=== PATIENT | male | born 1980 | race Hispanic/Latino ===

== ENCOUNTER 2023-12-30 09:05 | Inpatient (IN) | payer SELFPAY ==
[2023-12-30 10:04] LABS: #Basophils 0.03 10x3/uL (0.0-0.2); #Eosinphils Less than 0.03 10x3/uL (0.0-0.7); %Basophils 0.1 % (0.0-1.0); %Eosinophils 0.1 % (0.0-10.0); %Lymphocytes 2.4 % (21.0-51.0); %Monocytes 7.3 % (0.0-10.0); %Neutrophils 87.7 % (42.0-75.0); Hematocrit 24.2 % (42.0-52.0); Hemoglobin 7.5 g/dL (14.0-18.0); Mean Corpuscular Volume 96.8 fL (78.0-98.0); Platelet Count 199 10x3/uL (130-400); RBC Distribution Width 16.7 % (11.5-14.5)
[2023-12-30 10:18] LABS: INR-International Normal Ratio 1.5; Prothrombin Time 17.8 sec (12.0-14.7)
[2023-12-30 10:19] LABS: PTT 37.9 sec (22.9-36.1)
[2023-12-30] MEDS ORDERED: cefTRIAXone (ROCEPHIN) 1 GM VIAL ONE (10:23)
[2023-12-30 10:24] LABS: ALT (SGPT) 19 U/L (8-55); AST (SGOT) 19 U/L (5-34); Albumin 3.5 g/dL (3.5-5.0); Alkaline Phosphatase 82 U/L (40-110); Anion Gap 13 mmol/L (10-20); BUN (Urea Nitrogen) 34 mg/dL (8.9-20.6); Bilirubin, Total 1.5 mg/dL (0.2-1.2); Calc. Creatinine Clearance 0 mL/min (70-130); Calcium 8.9 mg/dL (7.8-10.44); Carbon Dioxide 25 mmol/L (22-29); Chloride 101 mmol/L (98-107); Estimated GFR 40; Glucose 239 mg/dL (70-105); Potassium 4.4 mmol/L (3.5-5.1); Protein, Total 7.5 g/dL (6.0-8.3); Sodium 135 mmol/L (136-145)
[2023-12-30] MEDS ORDERED: Sodium Chloride 0.9% 100 ML ONE (10:24)
[2023-12-30] MEDS ORDERED: Pantoprazole 40 MG VIAL ONE (12:09)
[2023-12-30 12:13] LABS: Bacteria/HPF 4+ HPF (None Seen); Bilirubin Negative (Negative); Blood, Urine 3+ (Negative); CAUTI Indications for Culture Dysuria,urgency,freq; Clarity Turbid (Clear); Glucose, Urine (Dipstick) Normal (Negative); Ketone, Urine Negative (Negative); Leukocyte 500 Leu/uL (Negative); Nitrite Negative (Negative); Protein, Urine (Dipstick) 30 mg/dL (Neg-Trace); Squamous Epithelial 0-3 HPF (0-3); Urobilinogen Normal mg/dL (Less than 2); WBC/HPF Greater than 50 HPF (0-3); pH, Urine 5.5 (5.0-9.0)
[2023-12-30 12:14] LABS: RBC/HPF 21-50 HPF (0-3)
[2023-12-30 12:16] LABS: Urine Culture Reflex Yes Yes
[2023-12-30 12:56] LABS: Hematocrit 28.2 % (42.0-52.0); Hemoglobin 8.5 g/dL (14.0-18.0); Mean Corpuscular HGB CONC 30.1 g/dL (32.0-36.0); Mean Corpuscular Hemoglobin 28.9 pg (27.0-31.0); Mean Corpuscular Volume 95.9 fL (78.0-98.0); Mean Platelet Volume 9.8 fL (7.4-10.4); Platelet Count 258 10x3/uL (130-400); Red Blood Cell (RBC) Count 2.94 mill/uL (4.70-6.10)
[2023-12-30 15:03] LABS: Hemoglobin A1c 3.2 % (4.0-6.0)
[2023-12-30] MEDS: Lactated Ringer's 1,000 ML IV SCH ×2 (15:54)
[2023-12-30] MEDS: FLU VACC QS2023-24(6MOS UP)/PF 60 MCG/0.5 ML SYRINGE IM ONE (15:54)
[2023-12-30] MEDS: cefTRIAXone\\ROCEPHIN 1 GM in Sodium Chloride 0.9% 100 ML IVPB SCH (15:55)
[2023-12-30] MEDS: Acetaminophen 325 MG TAB PO PRN (16:27)
[2023-12-30 17:00] LABS: #Basophils 0.03 10x3/uL (0.0-0.2); #Eosinphils Less than 0.03 10x3/uL (0.0-0.7); %Basophils 0.1 % (0.0-1.0); %Lymphocytes 2.8 % (21.0-51.0); %Monocytes 10.5 % (0.0-10.0); %Neutrophils 84.8 % (42.0-75.0); Hematocrit 19.6 % (42.0-52.0); Mean Corpuscular HGB CONC 30.6 g/dL (32.0-36.0); Mean Corpuscular Hemoglobin 29.3 pg (27.0-31.0); Mean Corpuscular Volume 95.6 fL (78.0-98.0); Mean Platelet Volume 9.7 fL (7.4-10.4); Platelet Count 177 10x3/uL (130-400); RBC Distribution Width 16.7 % (11.5-14.5); Red Blood Cell (RBC) Count 2.05 mill/uL (4.70-6.10)
[2023-12-30 17:09] LABS: Influenza A by NAA Not Detected (NotDetected); Influenza B by NAA Not Detected (NotDetected); SARS-CoV-2 NAA Rapid Test Not Detected (NotDetected)
[2023-12-30 17:23] LABS: Iron Less than 8 ug/dL (65-175); Iron Binding Capacity, Total 145 mcg/dL (261-462)
[2023-12-30 17:26] LABS: Chloride 108 mmol/L (98-107)
[2023-12-30 17:27] LABS: Calcium 7.9 mg/dL (7.8-10.44); Potassium 4.2 mmol/L (3.5-5.1); Sodium 135 mmol/L (136-145)
[2023-12-30 17:28] LABS: Globulin 3.1 g/dL (2.4-3.5); Glucose 122 mg/dL (70-105); Protein, Total 6.1 g/dL (6.0-8.3)
[2023-12-30 17:29] LABS: Anion Gap 13 mmol/L (10-20); Carbon Dioxide 18 mmol/L (22-29)
[2023-12-30 17:30] LABS: Bilirubin, Total 1.2 mg/dL (0.2-1.2)
[2023-12-30 17:31] LABS: Alkaline Phosphatase 70 U/L (40-110); Calc. Creatinine Clearance 61 mL/min (70-130); Estimated GFR 47
[2023-12-30 17:32] LABS: BUN (Urea Nitrogen) 35 mg/dL (8.9-20.6)
[2023-12-30 17:33] LABS: AST (SGOT) 22 U/L (5-34)
[2023-12-30 17:34] LABS: ALT (SGPT) 17 U/L (8-55)
[2023-12-30 18:35] LABS: #Basophils Less than 0.03 10x3/uL (0.0-0.2); #Eosinphils Less than 0.03 10x3/uL (0.0-0.7); %Basophils 0.1 % (0.0-1.0); %Lymphocytes 2.9 % (21.0-51.0); %Monocytes 7.7 % (0.0-10.0); %Neutrophils 87.7 % (42.0-75.0); Hemoglobin 6.3 g/dL (14.0-18.0); Mean Corpuscular Volume 96.8 fL (78.0-98.0); Mean Platelet Volume 10.2 fL (7.4-10.4); Platelet Count 176 10x3/uL (130-400); RBC Distribution Width 17.2 % (11.5-14.5); Red Blood Cell (RBC) Count 2.17 mill/uL (4.70-6.10)
[2023-12-30] MEDS: Pantoprazole 40 MG VIAL IVP SCH (19:45)
[2023-12-31 06:04] LABS: #Basophils 0.03 10x3/uL (0.0-0.2); #Eosinphils Less than 0.03 10x3/uL (0.0-0.7); %Basophils 0.1 % (0.0-1.0); %Monocytes 7.2 % (0.0-10.0); %Neutrophils 88.6 % (42.0-75.0); Hematocrit 29.3 % (42.0-52.0); Hemoglobin 8.8 g/dL (14.0-18.0); Mean Corpuscular Hemoglobin 29.4 pg (27.0-31.0); Mean Platelet Volume 10.3 fL (7.4-10.4); Platelet Count 200 10x3/uL (130-400); RBC Distribution Width 17.5 % (11.5-14.5); Red Blood Cell (RBC) Count 2.99 mill/uL (4.70-6.10)
[2023-12-31 06:30] LABS: ALT (SGPT) 19 U/L (8-55); AST (SGOT) 27 U/L (5-34); Albumin 3.2 g/dL (3.5-5.0); Alkaline Phosphatase 86 U/L (40-110); Anion Gap 15 mmol/L (10-20); BUN (Urea Nitrogen) 30 mg/dL (8.9-20.6); Bilirubin, Total 2.2 mg/dL (0.2-1.2); Calc. Creatinine Clearance 70 mL/min (70-130); Calcium 8.7 mg/dL (7.8-10.44); Carbon Dioxide 18 mmol/L (22-29); Chloride 109 mmol/L (98-107); Estimated GFR 56; Globulin 3.6 g/dL (2.4-3.5); Glucose 123 mg/dL (70-105); Potassium 4.3 mmol/L (3.5-5.1); Protein, Total 6.8 g/dL (6.0-8.3); Sodium 138 mmol/L (136-145)
[2023-12-31 06:31] LABS: HBSAg Index 0.17 S/CO (0-0.99); Hep B Surf Ag Non-Reactive S/CO (NonReactive); Hep C IgG Ab Non-Reactive S/CO (NonReactive); Hep C Index 0.21 S/CO (0-0.79)
[2023-12-31 06:32] LABS: Hep A IgM AB Non-Reactive (NonReactive); Hep A IgM S/CO 0.32 S/CO (0-0.79)
[2023-12-31] MEDS ORDERED: cefTRIAXone\\ROCEPHIN 1 GM in Sodium Chloride 0.9% 100 ML IVPB SCH (09:00)
[2023-12-31] MEDS: cefTRIAXone\\ROCEPHIN 2 GM in Sodium Chloride 0.9% 100 ML IVPB SCH (12:11)
[2023-12-31] MEDS: Lactated Ringer's 500 ML IV SCH (13:50)
[2023-12-31 14:29] LABS: Hematocrit 23.9 % (42.0-52.0); Hemoglobin 7.4 g/dL (14.0-18.0)
[2023-12-31 21:00] LABS: Hematocrit 23.4 % (42.0-52.0); Hemoglobin 7.6 g/dL (14.0-18.0)
[2023-12-31] MEDS: Cefepime 2 GM in Sodium Chloride 0.9% 100 ML IVPB SCH (21:08)
[2024-01-01 05:20] LABS: #Basophils 0.05 10x3/uL (0.0-0.2); %Basophils 0.2 % (0.0-1.0); %Eosinophils 0.2 % (0.0-10.0); %Monocytes 9.6 % (0.0-10.0); %Neutrophils 84.3 % (42.0-75.0); Hematocrit 25.8 % (42.0-52.0); Mean Corpuscular Volume 93.5 fL (78.0-98.0); Mean Platelet Volume 11.9 fL (7.4-10.4); Platelet Count 149 10x3/uL (130-400); RBC Distribution Width 17.9 % (11.5-14.5); Red Blood Cell (RBC) Count 2.76 mill/uL (4.70-6.10)
[2024-01-01 05:47] LABS: ALT (SGPT) 25 U/L (8-55); AST (SGOT) 39 U/L (5-34); Albumin 2.8 g/dL (3.5-5.0); Anion Gap 15 mmol/L (10-20); BUN (Urea Nitrogen) 26 mg/dL (8.9-20.6); Bilirubin, Total 1.2 mg/dL (0.2-1.2); Calc. Creatinine Clearance 80 mL/min (70-130); Calcium 8.7 mg/dL (7.8-10.44); Carbon Dioxide 17 mmol/L (22-29); Chloride 110 mmol/L (98-107); Estimated GFR 66; Globulin 3.6 g/dL (2.4-3.5); Glucose 120 mg/dL (70-105); Potassium 4.3 mmol/L (3.5-5.1); Protein, Total 6.4 g/dL (6.0-8.3); Sodium 138 mmol/L (136-145)
[2024-01-01 06:18] LABS: Alkaline Phosphatase 86 U/L (40-110)
[2024-01-01 16:16] LABS: HBCM Index 0.07 S/CO (0-0.79); Hepatitis B Core IgM Abs Non-Reactive S/CO (NonReactive)
[2024-01-02 05:07] LABS: #Basophils Less than 0.03 10x3/uL (0.0-0.2); %Basophils 0.2 % (0.0-1.0); %Eosinophils 0.6 % (0.0-10.0); %Lymphocytes 8.4 % (21.0-51.0); %Monocytes 7.2 % (0.0-10.0); %Neutrophils 82.7 % (42.0-75.0); Hematocrit 21.1 % (42.0-52.0); Hemoglobin 6.6 g/dL (14.0-18.0); Mean Corpuscular HGB CONC 31.3 g/dL (32.0-36.0); Mean Corpuscular Hemoglobin 29.2 pg (27.0-31.0); Mean Corpuscular Volume 93.4 fL (78.0-98.0); Mean Platelet Volume 10.2 fL (7.4-10.4); Platelet Count 183 10x3/uL (130-400); RBC Distribution Width 18.1 % (11.5-14.5); Red Blood Cell (RBC) Count 2.26 mill/uL (4.70-6.10)
[2024-01-02 05:21] LABS: INR-International Normal Ratio 1.4; Prothrombin Time 16.9 sec (12.0-14.7)
[2024-01-02 05:36] LABS: ALT (SGPT) 32 U/L (8-55); AST (SGOT) 40 U/L (5-34); Albumin 2.7 g/dL (3.5-5.0); Alkaline Phosphatase 84 U/L (40-110); Anion Gap 13 mmol/L (10-20); BUN (Urea Nitrogen) 24 mg/dL (8.9-20.6); Bilirubin, Total 1.1 mg/dL (0.2-1.2); Calc. Creatinine Clearance 88 mL/min (70-130); Calcium 8.4 mg/dL (7.8-10.44); Carbon Dioxide 21 mmol/L (22-29); Chloride 108 mmol/L (98-107); Estimated GFR 71; Globulin 3.4 g/dL (2.4-3.5); Glucose 121 mg/dL (70-105); Potassium 3.8 mmol/L (3.5-5.1); Protein, Total 6.1 g/dL (6.0-8.3); Sodium 138 mmol/L (136-145)
[2024-01-02] MEDS: Meropenem 1 GM in Sodium Chloride 0.9% 100 ML IVPB SCH ×3 (08:30→17:32)
[2024-01-03 01:01] LABS: Hematocrit 25.6 % (42.0-52.0); Hemoglobin 8.3 g/dL (14.0-18.0)
[2024-01-03 04:16] LABS: #Basophils Less than 0.03 10x3/uL (0.0-0.2); %Basophils 0.2 % (0.0-1.0); %Eosinophils 1.2 % (0.0-10.0); %Lymphocytes 12.7 % (21.0-51.0); %Monocytes 8.5 % (0.0-10.0); %Neutrophils 75.9 % (42.0-75.0); Hematocrit 25.5 % (42.0-52.0); Hemoglobin 8.4 g/dL (14.0-18.0); Mean Corpuscular HGB CONC 32.9 g/dL (32.0-36.0); Mean Corpuscular Hemoglobin 29.2 pg (27.0-31.0); Mean Corpuscular Volume 88.5 fL (78.0-98.0); Mean Platelet Volume 10.2 fL (7.4-10.4); Platelet Count 189 10x3/uL (130-400); RBC Distribution Width 18.7 % (11.5-14.5); Red Blood Cell (RBC) Count 2.88 mill/uL (4.70-6.10)
[2024-01-03 04:34] LABS: ALT (SGPT) 45 U/L (8-55); AST (SGOT) 47 U/L (5-34); Albumin 2.8 g/dL (3.5-5.0); Alkaline Phosphatase 85 U/L (40-110); Anion Gap 12 mmol/L (10-20); BUN (Urea Nitrogen) 18 mg/dL (8.9-20.6); Bilirubin, Total 1.7 mg/dL (0.2-1.2); Calc. Creatinine Clearance 107 mL/min (70-130); Calcium 8.6 mg/dL (7.8-10.44); Carbon Dioxide 23 mmol/L (22-29); Chloride 109 mmol/L (98-107); Estimated GFR 87; Globulin 3.8 g/dL (2.4-3.5); Glucose 114 mg/dL (70-105); Potassium 3.9 mmol/L (3.5-5.1); Protein, Total 6.6 g/dL (6.0-8.3); Sodium 140 mmol/L (136-145)
[2024-01-03] MEDS ORDERED: Iopamidol-370 76% 500 ML MDV (1 ML CHARGE) ONE (10:53)
[2024-01-03 11:55] LABS: HIV (1/2) Antibody/Antigen Non-Reactive (NonReactive); HIV 1/2 INDEX 0.14 S/CO (<1.00)
[2024-01-03 21:12] LABS: Adenovirus F 40-41 Not Detected (Not Detected); Astrovirus Not Detected (Not Detected); C. difficile toxin A+B Not Detected (Not Detected); Campylobacter by PCR Not Detected (Not Detected); Cryptosporidium Not Detected (Not Detected); Cyclospora cayetanensis Not Detected (Not Detected); Entamoeba histolytica Not Detected (Not Detected); Enteroaggregative E. coli Not Detected (Not Detected); Enteropathogenic E. coli Not Detected (Not Detected); Enterotoxigenic E. coli Not Detected (Not Detected); Giardia lamblia Not Detected (Not Detected); Norovirus GI-GII Not Detected (Not Detected); Plesiomonas shigelloides Not Detected (Not Detected); Rotavirus A Not Detected (Not Detected); Salmonella Not Detected (Not Detected); Sapovirus Not Detected (Not Detected); Shiga-toxin-producing E coli Not Detected (Not Detected); Shigella/Enteroinvasive E coli Not Detected (Not Detected); Vibrio Not Detected (Not Detected); Vibrio cholerae Not Detected (Not Detected); Yersinia enterocolitica Not Detected (Not Detected)
[2024-01-04 05:04] LABS: #Basophils Less than 0.03 10x3/uL (0.0-0.2); %Basophils 0.2 % (0.0-1.0); %Eosinophils 1.6 % (0.0-10.0); %Lymphocytes 13.1 % (21.0-51.0); %Monocytes 9.7 % (0.0-10.0); %Neutrophils 73.3 % (42.0-75.0); Hemoglobin 8.1 g/dL (14.0-18.0); Mean Corpuscular HGB CONC 31.2 g/dL (32.0-36.0); Mean Corpuscular Hemoglobin 28.3 pg (27.0-31.0); Mean Corpuscular Volume 90.9 fL (78.0-98.0); Mean Platelet Volume 10.3 fL (7.4-10.4); Platelet Count 229 10x3/uL (130-400); RBC Distribution Width 18.8 % (11.5-14.5); Red Blood Cell (RBC) Count 2.86 mill/uL (4.70-6.10)
[2024-01-04 05:26] LABS: ALT (SGPT) 76 U/L (8-55); AST (SGOT) 73 U/L (5-34); Albumin 2.9 g/dL (3.5-5.0); Alkaline Phosphatase 96 U/L (40-110); Anion Gap 14 mmol/L (10-20); BUN (Urea Nitrogen) 16 mg/dL (8.9-20.6); Bilirubin, Total 1.2 mg/dL (0.2-1.2); Calc. Creatinine Clearance 108 mL/min (70-130); Calcium 8.5 mg/dL (7.8-10.44); Carbon Dioxide 23 mmol/L (22-29); Chloride 107 mmol/L (98-107); Estimated GFR 98; Globulin 3.8 g/dL (2.4-3.5); Glucose 111 mg/dL (70-105); Potassium 3.6 mmol/L (3.5-5.1); Protein, Total 6.7 g/dL (6.0-8.3); Sodium 140 mmol/L (136-145)
[2024-01-04 11:36] LABS: Iron 22 ug/dL (65-175); Iron Binding Capacity, Total 174 mcg/dL (261-462)
[2024-01-04 13:59] LABS: Ferritin 4867.87 ng/mL (22-322)
[2024-01-05 05:40] LABS: #Basophils Less than 0.03 10x3/uL (0.0-0.2); %Basophils 0.3 % (0.0-1.0); %Eosinophils 2.6 % (0.0-10.0); %Lymphocytes 13.5 % (21.0-51.0); %Monocytes 8.2 % (0.0-10.0); %Neutrophils 72.2 % (42.0-75.0); Hematocrit 28.8 % (42.0-52.0); Hemoglobin 8.9 g/dL (14.0-18.0); Mean Corpuscular HGB CONC 30.9 g/dL (32.0-36.0); Mean Corpuscular Hemoglobin 28.3 pg (27.0-31.0); Mean Corpuscular Volume 91.7 fL (78.0-98.0); Platelet Count 247 10x3/uL (130-400); RBC Distribution Width 19.2 % (11.5-14.5); Red Blood Cell (RBC) Count 3.14 mill/uL (4.70-6.10)
[2024-01-05 07:25] LABS: ALT (SGPT) 73 U/L (8-55); AST (SGOT) 50 U/L (5-34); Albumin 3.1 g/dL (3.5-5.0); Alkaline Phosphatase 91 U/L (40-110); Anion Gap 14 mmol/L (10-20); BUN (Urea Nitrogen) 15 mg/dL (8.9-20.6); Bilirubin, Total 1.3 mg/dL (0.2-1.2); Calc. Creatinine Clearance 122 mL/min (70-130); Carbon Dioxide 22 mmol/L (22-29); Chloride 107 mmol/L (98-107); Estimated GFR 109; Globulin 4.1 g/dL (2.4-3.5); Glucose 100 mg/dL (70-105); Potassium 4.1 mmol/L (3.5-5.1); Protein, Total 7.2 g/dL (6.0-8.3); Sodium 139 mmol/L (136-145)
[2024-01-05] MEDS: Sulfameth/Trimethoprim DS 800-160mg TAB PO SCH (09:30)
[2024-01-06 06:06] LABS: #Basophils 0.03 10x3/uL (0.0-0.2); %Basophils 0.4 % (0.0-1.0); %Eosinophils 3.1 % (0.0-10.0); %Lymphocytes 22.4 % (21.0-51.0); %Monocytes 8.5 % (0.0-10.0); %Neutrophils 61.5 % (42.0-75.0); Hematocrit 32.4 % (42.0-52.0); Hemoglobin 9.9 g/dL (14.0-18.0); Mean Corpuscular HGB CONC 30.6 g/dL (32.0-36.0); Mean Corpuscular Hemoglobin 28.6 pg (27.0-31.0); Mean Corpuscular Volume 93.6 fL (78.0-98.0); Mean Platelet Volume 10.3 fL (7.4-10.4); Platelet Count 269 10x3/uL (130-400); RBC Distribution Width 19.5 % (11.5-14.5); Red Blood Cell (RBC) Count 3.46 mill/uL (4.70-6.10)
[2024-01-06 06:21] LABS: ALT (SGPT) 56 U/L (8-55); AST (SGOT) 29 U/L (5-34); Albumin 3.3 g/dL (3.5-5.0); Alkaline Phosphatase 93 U/L (40-110); Anion Gap 10 mmol/L (10-20); BUN (Urea Nitrogen) 15 mg/dL (8.9-20.6); Bilirubin, Total 0.8 mg/dL (0.2-1.2); Calc. Creatinine Clearance 116 mL/min (70-130); Calcium 8.7 mg/dL (7.8-10.44); Carbon Dioxide 23 mmol/L (22-29); Chloride 107 mmol/L (98-107); Estimated GFR 107; Globulin 4.2 g/dL (2.4-3.5); Glucose 89 mg/dL (70-105); Protein, Total 7.5 g/dL (6.0-8.3); Sodium 136 mmol/L (136-145)
[2024-01-06 09:12] VITALS: BMI 26.1
[2024-01-06 11:38] VITALS: BP 106/65; TEMP 98.4
== END 2024-01-06 14:15 | disposition home or self-care (01) | DRG 871 ==
LOC: ERS 09:05 → ERHOLD 12:51 → IMCU/EMU 14:51 → 2NO 01-01 18:48
PROVIDERS: ADMIT Student in an Organized Health Care Education/Training Program; ATTEND Student in an Organized Health Care Education/Training Program
PROC: 30233N1 Transfusion of Nonautologous Red Blood Cells into Peripheral Vein, Percutaneous Approach (ICD-10-PCS; principal; 2023-12-30)
PROC: 3E03329 Introduction of Other Anti-infective into Peripheral Vein, Percutaneous Approach (ICD-10-PCS; 2023-12-30)
DX: A41.51 Sepsis due to Escherichia coli [E. coli] (principal); J96.01 Acute respiratory failure with hypoxia; N12 Tubulo-interstitial nephritis, not specified as acute or chronic; K92.2 Gastrointestinal hemorrhage, unspecified; N17.9 Acute kidney failure, unspecified; N39.0 Urinary tract infection, site not specified; Z79.899 Other long term (current) drug therapy; D64.9 Anemia, unspecified; D73.5 Infarction of spleen; I95.9 Hypotension, unspecified; R74.01 Elevation of levels of liver transaminase levels
CPT/HCPCS: 36415; 36416; 36430; 71045; 74176; 74177; 76705; 80053; 80074; 81001; 82607; 82728; 83010; 83036; 83540; 83550; 83605; 83615; 84145; 85025; 85046; 85060; 85610; 85730; 86720; 86850; 86880; 86900; 86901; 87040; 87077; 87086; 87186; 87324; 87389; 87449; 87507; 87798; 93005; 94760; 96361; 96365; 96375; C9113; J0692; J0696; J2185; J3490; J7120; P9016; Q9967